=== PATIENT | female | born 1960 | race Caucasian/White ===

== ENCOUNTER 2018-05-30 22:50 | Emergency (ER) | payer OTHER ==
[~2018-05-30] VITALS: Ht 157.5 cm; Wt 65.8 kg
[2018-05-30 22:55] VITALS: BP_SYST 162
[2018-05-30] MEDS ORDERED: LORazepam 1 MG TABLET PO ONE (23:15)
[2018-05-31] MEDS ORDERED: DIPHENHYDRAMINE HCL 25 MG CAPSULE PO ONE (00:15)
[2018-05-31] MEDS ORDERED: FAMOTIDINE 20 MG TABLET PO ONE (00:15)
[2018-05-31 00:50] VITALS: BP_SYST 130
== END 2018-05-31 00:50 | disposition home or self-care (01) ==
LOC: SED 22:50
DX: T78.40XA Allergy, unspecified, initial encounter (principal); X58.XXXA Exposure to other specified factors, initial encounter; R03.0 Elevated blood-pressure reading, without diagnosis of hypertension
CPT/HCPCS: 99284; Q0163